=== PATIENT | male | born 1955 | race Caucasian/White ===

== ENCOUNTER 2019-03-26 15:28 | Emergency (ER) | payer OTHER ==
[~2019-03-26] VITALS: Ht 165.1 cm; Wt 73.6 kg
[~2019-03-26 15:28] MED LIST: ASPI-1182 PO; CLOP75TA3 PO; ISOS30TA6 PO; LISI-662 PO; METF-960 PO; METO25XL PO; SIMV-261 PO
[2019-03-26] MEDS ORDERED: CARV12 PO (15:43)
[2019-03-26] MEDS ORDERED: SACU1TAB7 PO (15:43)
[2019-03-26 15:44] LABS: GLUCOSE,POINT OF CARE 155 MG/DL (70-110)
[2019-03-26] MEDS ORDERED: SPIR25 PO (15:44)
[2019-03-26] MEDS ORDERED: RANO500T3 PO (15:44)
[2019-03-26 16:30] LABS: BASOPHILS % (AUTO) 0.9 % (0.0-2.0); EOSINOPHILS % (AUTO) 1.6 % (1.0-6.0); HEMATOCRIT 41.6 % (41-53); HEMOGLOBIN 13.9 g/dL (13.5-17.5); LYMPHOCYTES # (AUTO) 2.1 K/uL (1.0-4.8); LYMPHOCYTES % (AUTO) 42.6 % (22.0-44.0); MEAN CORPUSCULAR HEMOGLOBIN 30.6 pg (26.0-34.0); MEAN CORPUSCULAR HGB CONC 33.4 G/dL (31.0-37.0); MEAN CORPUSCULAR VOLUME 92 fL (80-100); MONOCYTES # (AUTO) 0.4 K/uL (0.1-1.0); MONOCYTES % (AUTO) 7.8 % (2.0-9.0); NEUTROPHILS # (AUTO) 2.4 K/uL (1.8-7.7); NEUTROPHILS % (AUTO) 47.1 % (40.0-70.0); PLATELET COUNT (AUTO) 167 K/uL (150-450); RED BLOOD CELL COUNT(AUTO) 4.54 MIL/uL (4.50-5.90); RED CELL DISTRIBUTION WIDTH 12.6 % (11.5-14.5)
[2019-03-26 16:41] LABS: CREATININE 1.32 mg/dL (0.60-1.30); POTASSIUM 4.3 mmol/L (3.5-5.1)
[2019-03-26 16:47] LABS: ALBUMIN 3.6 g/dL (3.4-5.0); BILIRUBIN,TOTAL 0.4 mg/dL (0.1-1.0); TOTAL PROTEIN, SERUM 7.6 g/dL (6.4-8.2)
[2019-03-26 17:07] LABS: PROTHROMBIN TIME 10.5 SEC (9.4-11.6)
[2019-03-26] MEDS ORDERED: ACETAMINOPHEN 325 MG TABLET PO PRN (17:30)
[2019-03-26] MEDS ORDERED: 0.9% SODIUM CHLORIDE 10 ML SYRINGE IVP PRN (17:30)
[2019-03-26] MEDS ORDERED: ONDANSETRON HCL 4 MG/2 ML VIAL IVP PRN (17:30)
[2019-03-26 19:54] LABS: MAGNESIUM 1.9 mg/dL (1.80-2.40)
[2019-03-26 21:46] VITALS: BP 124/81
== END 2019-03-26 22:15 | disposition short-term general hospital (02) ==
LOC: EMS 15:29
DX: T82.118A Breakdown (mechanical) of other cardiac electronic device, initial encounter (principal); I11.0 Hypertensive heart disease with heart failure; I50.9 Heart failure, unspecified; E11.9 Type 2 diabetes mellitus without complications; Z79.01 Long term (current) use of anticoagulants; Z79.84 Long term (current) use of oral hypoglycemic drugs; Z88.8 Allergy status to other drugs, medicaments and biological substances; Y84.0 Cardiac catheterization as the cause of abnormal reaction of the patient, or of later complication, without mention of misadventure at the time of the procedure; Y82.8 Other medical devices associated with adverse incidents
CPT/HCPCS: 83735; 93005; 99291